=== PATIENT | female | born 1980 | race Caucasian/White ===

== ENCOUNTER → 2017-04-30 | Outpatient (CLI) | payer OTHER | LOC: RAD 14:02 | DX: M54.2 Cervicalgia (principal); M54.9 Dorsalgia, unspecified; R05 Cough; M25.561 Pain in right knee; M25.562 Pain in left knee; M47.892 Other spondylosis, cervical region | CPT/HCPCS: 71020; 72050; 72072; 72110; 73564 ==

== ENCOUNTER → 2020-12-28 | Outpatient (CLI) | payer OTHER ==
[~2020-12-28] MED LIST: ZOFRAN4 MG PO
== END ==
LOC: KOH-I 10:32
DX: B19.20 Unspecified viral hepatitis C without hepatic coma (principal); K76.0 Fatty (change of) liver, not elsewhere classified; N26.1 Atrophy of kidney (terminal)
CPT/HCPCS: 76705

== ENCOUNTER 2021-08-02 16:57 | Emergency (ER) | payer OTHER | END 2021-08-02 18:07 | disposition left against medical advice (07) | LOC: ER1 16:57 | DX: Z53.21 Procedure and treatment not carried out due to patient leaving prior to being seen by health care provider (principal) ==

== ENCOUNTER 2021-11-29 22:33 | Emergency (ER) | payer OTHER ==
[2021-11-29 23:50] LABS: HEMOGLOBIN 14.4 gm/dl (12.3-15.3); RED BLOOD COUNT 4.41 M/UL (4.00-5.10); WHITE BLOOD COUNT 19.3 K/UL (4.5-11.0)
[2021-11-30] MEDS ORDERED: ONDANSETRON ODT4 MG SL (02:35)
[2021-11-30] MEDS ORDERED: AUGMENTIN 875-1 EACH PO (02:35)
== END 2021-11-30 03:25 | disposition home or self-care (01) ==
LOC: ER1 22:33
PROVIDERS: Physician Assistant
DX: N28.9 Disorder of kidney and ureter, unspecified (principal); R82.81 Pyuria; D72.829 Elevated white blood cell count, unspecified; F17.200 Nicotine dependence, unspecified, uncomplicated; Z79.899 Other long term (current) drug therapy
CPT/HCPCS: 80053; 81001; 83605; 83690; 84703; 85025; 87040; 87086; 96374; 96375; 99284; J0696; J1885; J7030

== ENCOUNTER 2021-11-30 16:10 | Emergency (ER) | payer OTHER ==
[~2021-11-30 16:10] MED LIST changes: +AUGMENTIN 875-1 EACH PO; +ONDANSETRON ODT4 MG SL
[2021-11-30 17:17] LABS: HEMOGLOBIN 12.1 gm/dl (12.3-15.3); RED BLOOD COUNT 3.78 M/UL (4.00-5.10); WHITE BLOOD COUNT 20.7 K/UL (4.5-11.0)
[2021-11-30 17:29] LABS: BUN/CREATININE RATIO 22 (0-10)
== END 2021-11-30 18:55 | disposition home or self-care (01) ==
LOC: ER1 16:10
PROVIDERS: Emergency Medicine
DX: N39.0 Urinary tract infection, site not specified (principal); F17.200 Nicotine dependence, unspecified, uncomplicated; K59.00 Constipation, unspecified
CPT/HCPCS: 80053; 83690; 85025; 96374; 96375; 99284; J2270; J2405

== ENCOUNTER → 2022-07-11 | Outpatient (CLI) | payer OTHER ==
[2022-07-11 15:11] LABS: BUN/CREATININE RATIO 16 (0-10)
[2022-07-12 07:10] LABS: VITAMIN D, 25-HYDROXY 42.6 ng/mL (30.0-100.0)
[2022-07-12 09:14] LABS: RHEUMATOID ARTHRITIS FACTOR <10.0 IU/mL (<14.0)
== END ==
LOC: LAB 13:49
PROVIDERS: Nurse Practitioner
DX: G25.81 Restless legs syndrome (principal); G60.8 Other hereditary and idiopathic neuropathies; R79.89 Other specified abnormal findings of blood chemistry; E55.9 Vitamin D deficiency, unspecified; E53.1 Pyridoxine deficiency; E53.8 Deficiency of other specified B group vitamins; E51.9 Thiamine deficiency, unspecified; M79.7 Fibromyalgia; Z79.899 Other long term (current) drug therapy
CPT/HCPCS: 36415; 80053; 81374; 82607; 82728; 82746; 83735; 84207; 84425; 84550; 85652; 86038; 86060; 86140; 86200; 86431